=== PATIENT | male | born 1955 | race Hispanic/Latino ===

== ENCOUNTER 2018-11-01 21:33 | Emergency (ER) | payer BC ==
[2018-11-01 21:45] VITALS: RESP 16
[2018-11-01 22:55] LABS: BASO % 1.1 % (0.0-2.0); EOS # 0.1 K/uL (0.0-0.7); EOS % 3.8 % (0.0-4.0); HEMOGLOBIN 13.9 g/dL (12.0-18.0); LYMPH # 1.5 K/uL (1.0-4.3); MEAN CORPUSCULAR HEMOGLOBIN 30.2 pg (27.0-31.0); MEAN CORPUSCULAR HGB CONC 34.4 g/dL (33.0-37.0); MEAN PLATELET VOLUME 9.3 fl (7.2-11.7); MONO # 0.3 K/uL (0.0-0.8); MONO % 9.7 % (0.0-10.0); NEUT # 1.5 K/uL (1.8-7.0); NEUT % 41.4 % (50.0-75.0); NRBC % 0.1 % (0.0-0.0); RBC 4.61 Mil/uL (4.40-5.90); RED CELL DISTRIBUTION WIDTH 12.9 % (11.5-14.5); WHITE BLOOD COUNT 3.5 K/uL (4.8-10.8)
[2018-11-01 23:02] LABS: INR 1.1
[2018-11-01 23:05] LABS: PARTIAL THROMBOPLASTIN TIME 49.2 Seconds (25.6-37.1)
--- NOTE | 2018-11-01 23:12 | ED PDOC ---
HPI: Chest Pain Time Seen by Provider: 11/01/18 21:51 Chief Complaint (Nursing): Chest Pain Chief Complaint (Provider): Chest Pain History Per: Patient History/Exam Limitations: no limitations Onset/Duration Of Symptoms: Days (x1) Current Symptoms Are (Timing): Still Present Additional Complaint(s): 63 year old male with past history of coronary artery disease, presents to the emergency department with a complaint of left-sided chest pain that radiates to his shoulder since 1745 earlier today. He denies any radiation of pain, nausea, vomiting, diaphoresis, or shortness of breath. PCP: Dr. Yovani Pompa Past Medical History Reviewed: Historical Data, Nursing Documentation, Vital Signs Vital Signs: Last Vital Signs Temp 97.3 F L 11/01/18 21:38 Pulse 61 11/01/18 21:38 Resp 16 11/01/18 21:38 BP 146/92 H 11/01/18 21:38 Pulse Ox 97 11/01/18 21:38 - Medical History PMH: Anxiety, CAD, HTN - Surgical History Surgical History: Denies: No Surg Hx Other surgeries: Percutaneous transluminal coronary angioplasty - Family History Family History: States: Unknown Family Hx - Allergies Allergies/Adverse Reactions: Allergies Allergy/AdvReac Type Severity Reaction Status Date / Time Penicillins Allergy RASH Verified 11/01/18 21:38 Review of Systems ROS Statement: Except As Marked, All Systems Reviewed And Found Negative Constitutional: Negative for: Sweats Cardiovascular: Positive for: Chest Pain (left-sided) Respiratory: Negative for: Shortness of Breath Gastrointestinal: Negative for: Nausea, Vomiting Musculoskeletal: Positive for: Shoulder Pain (left-sided) Physical Exam - Reviewed Nursing Documentation Reviewed: Yes Vital Signs Reviewed: Yes - Physical Exam Appears: Positive for: Non-toxic, No Acute Distress Head Exam: Positive for: ATRAUMATIC, NORMAL INSPECTION, NORMOCEPHALIC Skin: Positive for: Normal Color Eye Exam: Positive for: Normal appearance, EOMI, PERRL ENT: Positive for: Normal ENT Inspection Neck: Positive for: Normal, Supple Cardiovascular/Chest: Positive for: Chest Non Tender, Bradycardia Respiratory: Positive for: Normal Breath Sounds. Negative for: Wheezing, Respiratory Distress Gastrointestinal/Abdominal: Positive for: Normal Exam, Soft. Negative for: Tenderness Extremity: Positive for: Normal ROM (upper/lower). Negative for: Pedal Edema, Calf Tenderness Neurologic/Psych: Positive for: Alert, Oriented. Negative for: Motor/Sensory Deficits, Aphasia - Laboratory Results Result Diagrams: 11/01/18 22:45 11/01/18 22:45 Lab Results: PT 12.0 Seconds (9.8-13.1) 11/01/18 22:45 INR 1.1 11/01/18 22:45 APTT 49.2 Seconds (25.6-37.1) H 11/01/18 22:45 - ECG O2 Sat by Pulse Oximetry: 97 (RA) Pulse Ox Interpretation: Normal Medical Decision Making Medical Decision Making: Initial Impression: 63 year old male with chest pain. Initial Plan: * EKG * Labs 00:19 Labs reviewed and reveal no clinically significant abnormalities. Patient reports having no symptoms since arrival. He was encouraged to stay in the ED for a repeat 4 hour troponin which he declined based off normal labs and lack of symptoms. He is stable for discharge. Return precautions provided. Diagnosis is left shoulder pain. Scribe Attestation: Documented by Adrienne Wise, acting as a scribe for Edgardo Casas MD. Provider Scribe Attestation: All medical record entries made by the Scribe were at my direction and personally dictated by me. I have reviewed the chart and agree that the record accurately reflects my personal performance of the history, physical exam, medical decision making, and the department course for this patient. I have also personally directed, reviewed, and agree with the discharge instructions and disposition. Disposition - Clinical Impression Clinical Impression: Arm pain - Patient ED Disposition Is Patient to be Admitted: No - Disposition Disposition: Routine/Home Disposition Time: 00:22 Condition: STABLE Instructions: Chest Pain (DC) Forms: [employer] (Sinhala)
[2018-11-01 23:20] LABS: ALB/GLOB RATIO 1.4 (1.0-2.1); ALBUMIN 3.8 g/dL (3.5-5.0); ALT/SGPT 47 U/L (21-72); AST/SGOT 35 U/L (17-59); BLOOD UREA NITROGEN 20 mg/dl (9-20); GFR NON-AFRICAN AMERICAN > 60
[2018-11-02 09:31] VITALS: BP 131/84; PULSE 68; TEMP 98.1; O2SAT 100
--- NOTE | 2018-11-02 15:19 | CARD ---
APPROVED REPORT Date of service: 11/01/2018 EKG Measurement Heart [id number] <Conclusion> Sinus bradycardia Nonspecific intraventricular block Abnormal ECG
== END 2018-11-02 00:25 | disposition home or self-care (01) ==
LOC: H.ER 21:33
DX: M25.512 Pain in left shoulder (principal); I10 Essential (primary) hypertension; I25.10 Atherosclerotic heart disease of native coronary artery without angina pectoris; Z88.0 Allergy status to penicillin